=== PATIENT | female | born 1995 | race Caucasian/White ===

== ENCOUNTER → 2017-09-14 | Outpatient (CLI) | payer OTHER | END | disposition home or self-care (01) | LOC: RADECHMAIN 11:49 | PROVIDERS: ATTEND Internal Medicine | DX: R00.2 Palpitations (principal) | CPT/HCPCS: 93225; 93226 ==

== ENCOUNTER 2020-08-31 12:07 | Outpatient (CLI) | payer OTHER ==
[2020-08-31] MEDS ORDERED: LACTATED RINGERS 1,000 ML IV SCH (13:15)
[2020-08-31 13:27] VITALS: RESP 16; TEMP 97.3
[2020-08-31] MEDS ORDERED: LACTATED RINGERS 1,000 ML IV ONE (15:00)
[2020-08-31] MEDS: TERBUTALINE 1 MG/ML VIAL SQ PRN ×2 (15:10→15:43)
[2020-08-31 16:03] LABS: Appearance,Urine Clear (Clear); Bilirubin,Urine Negative (Negative); Blood,Urine Small (Negative); Color,Urine Light Yellow; Glucose,Urine (UA) Negative (Negative); Ketones,Urine Negative (Negative); Leukocyte Esterase,Urine Large (Negative); Mucus,Urine Rare /hpf; Nitrite,Urine Negative (Negative); PH, Urine 6.5 (5.0-8.0); Protein,Urine Negative (Negative); RBC,Urine 1 /hpf (0-5); Specific Gravity,Urine 1.009 (1.001-1.035); Squamous Epithelial Cell,Urine 2 /hpf (0-4); Urobilinogen,Urine <2.0 mg/dL (<2.0); WBC,Urine 5 /hpf (0-5)
[2020-08-31 20:17] VITALS: BP 104/62; PULSE 78
--- NOTE | 2020-09-17 09:43 | P.MSEPDOC ---
Presenting Problems - Arrival Data Date of Arrival on Unit: 08/31/20 Time of Arrival on Unit: 12:27 Mode of Transport: Ambulatory - Complaint OB-Reason for Admission/Chief Complaint: Possible Onset of Labor, Decreased Movement Medical History - Information : 5 Para: 3 Term: 0 : 3 Abortions: Spontaneous or Elective: 1 Number of Living Children: 3 - Gestational Age Gestational Age by ESTEFANIA (wks/days): 29 Weeks and 5 Days - History Complications: Prior Review of Systems - Review of Systems Constitutional: No problems Breast: No problems ENT: No problems Cardiovascular: No problems Respiratory: No problems Gastrointestinal: No problems Genitourinary: No problems Musculoskeletal: No problems Neurological: No problems Skin: No problems Vital Signs - Temperature Temperature: 97.3 F Temperature Source: Tympanic - Pulse Right Sitting Pulse Rate: 78 Pulse Assessment Method: Automatic Cuff - Respirations Respiratory Rate: 16 Oxygen Delivery Method: Room Air O2 Sat by Pulse Oximetry: 98 - Blood Pressure Right Arm Blood Pressure: 104/62 Blood Pressure Mean: 76 Blood Pressure Source: Automatic Cuff Medical Screen Scoring - Assessment - Baby A Baseline FHR: 135 Physician Notification - Physician Notified Physician Notified Date: 08/31/20 Physician Notified Time: 12:51 Physician: Dr Peraza New Order Received: Yes - Notification Comment Comment: 125[address] per Adriel Liz[address] dr. peraza, reported on pts c/o contractions and decreased . movement, reactive nst, 1 conraction in the last 30minuites, pt has button and pushing. irregularly, no vag exam yet, per dr. peraza check cervix while she remains on hold. 1257 Adriel Lizarraga "per dr. peraza start iv and give 500ml bolus LR, recheck cervix in 1 hour, if nochange pt may be d/c home on pelvic rest and instructions to F/U with own provider onmonday, if cervical change call back for further orders. [id number] Dr Peraza updated with pt regular contractions [id number] pm. now breathing thru. and rates pain 6 with contractions. 1 liter LR completed. cervix unchanged at 1427 vag. exam. orders received for terbutaline, give 2nd liter LR and to send UA. Dr will call. back at 4pm for update. Disposition - Disposition OB Disposition: Physician follow up in office, Discharge to home Discharge Date: 08/31/20 Discharge Time: 16:05 I agree with the RN Medical Screening Exam: Yes Case reviewed; plan agreed upon as documented in EMR&OBIX.: Yes Comments: Patient was neither seen nor examined by me. Diagnosis: DECREASED MOVEMENTS, THIRD TRIMESTER, FETUS 1
== END 2020-08-31 16:45 | disposition home or self-care (01) ==
LOC: FBPOP 12:07
PROVIDERS: ATTEND Obstetrics & Gynecology
DX: O36.8131 Decreased fetal movements, third trimester, fetus 1 (principal); Z3A.29 29 weeks gestation of pregnancy; Z91.048 Other nonmedicinal substance allergy status; Z91.018 Allergy to other foods; Z87.891 Personal history of nicotine dependence
CPT/HCPCS: 59025; 96360; 96361; 96372; 81001; G0463; J3105; 96367; 99213; 99214

== ENCOUNTER 2020-10-11 12:53 | Outpatient (CLI) | payer OTHER ==
[2020-10-11 15:00] VITALS: BP 108/67; PULSE 105; RESP 16; TEMP 98.2
--- NOTE | 2020-11-11 08:26 | P.MSEPDOC ---
Presenting Problems - Arrival Data Date of Arrival on Unit: 10/11/20 Time of Arrival on Unit: 12:53 Mode of Transport: Ambulatory - Complaint OB-Reason for Admission/Chief Complaint: Possible Onset of Labor Comment: pt presents to triage with complaints of discomfort for last 2 weeks and increasing discomfort with contractions that she states are irregular, pt also reports bright red spotting that occured 30 minutes prior to coming to triage that is now brown Medical History - Information : 5 Para: 3 Term: 0 : 3 Abortions: Spontaneous or Elective: 1 Number of Living Children: 3 - Gestational Age Gestational Age by ESTEFANIA (wks/days): 35 Weeks and 4 Days - History Complications: Prior Comment: pt has received 2 doses of betamethsone Review of Systems - Review of Systems Constitutional: No problems Breast: No problems ENT: No problems Cardiovascular: No problems Respiratory: No problems Gastrointestinal: No problems Genitourinary: No problems Musculoskeletal: No problems Neurological: No problems Skin: No problems Vital Signs - Temperature Temperature: 98.2 F Temperature Source: Oral - Pulse Right Brachial Pulse Rate: 105 Pulse Assessment Method: Automatic Cuff - Respirations Respiratory Rate: 16 Oxygen Delivery Method: Room Air O2 Sat by Pulse Oximetry: 97 - Blood Pressure Right Arm Blood Pressure: 108/67 Blood Pressure Mean: 80 Blood Pressure Source: Automatic Cuff Medical Screen Scoring - Cervical Exam Dilation (cm): 3.5 Effacement (%): 50 Station: -3 Membranes: Intact - Uterine Contractions Intensity: Moderate Resting: Soft to palpation - Assessment - Baby A Baseline FHR: 135 Heart Rate - NICHD Category: Category I (Normal) NST: Reactive Physician Notification - Physician Notified Physician Notified Date: 10/11/20 Physician Notified Time: 14:15 Physician: Dr Salazar New Order Received: Yes (dc home) Maternal Triage Index - Prompt/Priority 3 Prompt Priority 3: Yes Criteria Met for Priority 3: no cervical change noted Disposition - Disposition OB Disposition: Discharge to home, Written follow up instructions reviewed Discharge Date: 10/11/20 Discharge Time: 14:25 I agree with the RN Medical Screening Exam: Yes Case reviewed; plan agreed upon as documented in EMR&OBIX.: Yes Diagnosis: FALSE LABOR BEFORE 37 COMPLETED WEEKS OF GEST, THIRD TRI
== END 2020-10-11 14:25 | disposition home or self-care (01) ==
LOC: FBPOP 12:53
PROVIDERS: ATTEND Obstetrics & Gynecology
DX: O47.03 False labor before 37 completed weeks of gestation, third trimester (principal); Z3A.35 35 weeks gestation of pregnancy
CPT/HCPCS: 59025; G0463; 99213

== ENCOUNTER 2020-10-11 19:40 | Inpatient (IN) | payer OTHER ==
[2020-10-11] MEDS ORDERED: CARBOPROST TROMETHAMINE 250 MCG/ML 1 ML AMP IM PRN (19:56)
[2020-10-11] MEDS ORDERED: METHYLERGONOVINE 0.2 MG/ML 1 ML AMP IM PRN (19:56)
[2020-10-11] MEDS ORDERED: AMPICILLIN 2,000 MG in SODIUM CHLORIDE 0.9% 100 ML IVPB STA (19:56)
[2020-10-11] MEDS ORDERED: OXYTOCIN 10 UNIT/ML 1 ML VIAL IM PRN (19:56)
[2020-10-11] MEDS ORDERED: TERBUTALINE 1 MG/ML VIAL SQ PRN (19:56)
[2020-10-11] MEDS ORDERED: LIDOCAINE 0.5% (PF) 5 MG/ML (50 ML SDV) SQ PRN (19:56)
[2020-10-11] MEDS: LACTATED RINGERS 1,000 ML IV SCH ×2 (20:10→20:38)
[2020-10-11 20:25] LABS: Basophils # (A) 0.1 k/uL (0-0.2); Basophils % (A) 1 %; Eosinophils # (A) 0.1 k/uL (0-0.7); Eosinophils % (A) 1 %; HCT 32.2 % (34.0-46.0); HGB 10.5 gm/dL (11.4-16.0); Lymphocytes # (A) 2.3 k/uL (1.0-4.8); Lymphocytes % (A) 20 %; MCH 28.8 pg (25.0-35.0); MCHC 32.6 g/dL (31.0-37.0); MCV 88.2 fL (80.0-100.0); Monocytes # (A) 0.5 k/uL (0-1.0); Monocytes % (A) 4 %; Neutrophils # (A) 8.7 k/uL (1.3-7.7); Neutrophils % (A) 73 %; Platelet Count 287 k/uL (150-450); RBC 3.65 m/uL (3.80-5.40); RDW 15.2 % (11.5-15.5); WBC 11.9 k/uL (3.8-10.6)
[2020-10-11] MEDS ORDERED: SODIUM CHLORIDE 0.9% 100 ML BAG ONE (21:01)
[2020-10-11] MEDS ORDERED: fentaNYL (PF) 50 MCG/ML 5 ML AMP ONE (21:01)
[2020-10-11] MEDS ORDERED: ROPIVACAINE 5MG/ML 20ML VIAL ONE (21:01)
--- NOTE | 2020-10-11 21:08 | P.HPOB ---
History of Present Illness H&P Date: 10/11/20 Chief Complaint: Spontaneous rupture of membranes 25-year-old 's presents at 35 weeks and 4 days with spontaneous rupture of membranes. Her cervix is 5 cm dilated, 70% effaced, -2 station. She is liane every 2-5 minutes. heart tones 140 with moderate variability and reactive. Review of Systems All systems: negative Constitutional: Denies chills, Denies fever Eyes: denies blurred vision, denies pain Ears, nose, mouth and throat: Denies headache, Denies sore throat Cardiovascular: Denies chest pain, Denies shortness of breath Respiratory: Denies cough Gastrointestinal: Denies abdominal pain, Denies diarrhea, Denies nausea, Denies vomiting Genitourinary: Denies dysuria, Denies hematuria Musculoskeletal: Denies myalgias Integumentary: Denies pruritus, Denies rash Neurological: Denies numbness, Denies weakness Psychiatric: Denies anxiety, Denies depression Endocrine: Denies fatigue, Denies weight change Past Medical History Past Medical History: No Reported History Additional Past Medical History / Comment(s): Obstetric history: She has had 3 previous vaginal deliveries. O+, abs neg, Rub Imm, RPR Nr, Hep B neg, History of Any Multi-Drug Resistant Organisms: None Reported Past Surgical History: No Surgical Hx Reported Past Anesthesia/Blood Transfusion Reactions: No Reported Reaction Past Psychological History: ADD/ADHD, Depression Smoking Status: Never smoker Past Alcohol Use History: None Reported Past Drug Use History: None Reported - Past Family History Father Family Medical History: No Reported History Medications and Allergies Home Medications Medication Instructions Recorded Confirmed Type Multivitamin [Children's 2 tab PO DAILY 10/12/14 10/11/20 History Multivitamins] Allergies Allergy/AdvReac Type Severity Reaction Status Date / Time adhesive tape Allergy Swelling Uncoded 10/11/20 19:53 [email or web address] Allergy Anaphylaxis Uncoded 10/11/20 19:53 Exam Osteopathic Statement: *. No significant issues noted on an osteopathic structural exam other than those noted in the History and Physical/Consult. Vital Signs Temp Pulse Resp BP 10/11/20 20:17 96.3 F L 108 H 18 124/74 Intake and Output 10/11/20 10/11/20 10/11/20 06:59 14:59 22:59 Other: Weight 59.874 kg Heart: Regular rate and rhythm Lungs: Clear to auscultation bilaterally Abdomen: Soft, nontender Extremities: Negative Homans sign Results Result Diagrams: 10/11/20 20:10 Abnormal Lab Results - Last 24 Hours (Table) 10/11/20 Range/Units 20:10 WBC 11.9 H (3.8-10.6) k/uL RBC 3.65 L (3.80-5.40) m/uL Hgb 10.5 L (11.4-16.0) gm/dL Hct 32.2 L (34.0-46.0) % Neutrophils # 8.7 H (1.3-7.7) k/uL Assessment and Plan (1) Spontaneous rupture of membranes Current Visit: Yes Status: Acute Code(s): GJE3884 - SNOMED Code(s): 727277944 (2) labor Current Visit: Yes Status: Acute Code(s): O60.00 - LABOR WITHOUT DELIVERY, UNSPECIFIED TRIMESTER SNOMED Code(s): 7712113 Plan: 1. Admit to family place 2. GBS prophylaxis 3. Anticipate normal vaginal delivery
[2020-10-11] MEDS ORDERED: OXYTOCIN 30 UNITS/500 ML NS 30 UNIT in SALINE 1 500ML.BAG IV SCH (23:15)
[2020-10-11] MEDS ORDERED: AMPICILLIN 1,000 MG in SODIUM CHLORIDE 0.9% 50 ML IVPB SCH (23:45)
[2020-10-12] MEDS ORDERED: diphenhydrAMINE 50 MG/ML 1 ML VIAL IVP PRN ×2 (00:20)
[2020-10-12] MEDS ORDERED: LANOLIN CREAM 5 GM TUBE TOPICAL PRN (00:20)
[2020-10-12] MEDS ORDERED: SIMETHICONE 80 MG CHEWABLE PO PRN (00:20)
[2020-10-12] MEDS ORDERED: diphenhydrAMINE 25 MG CAP PO PRN (00:20)
[2020-10-12] MEDS ORDERED: HYDROCORTISONE 2.5% RECTAL CREAM 30 GM TUBE RECTAL PRN (00:20)
[2020-10-12] MEDS ORDERED: diphenhydrAMINE 50 MG CAP PO PRN (00:20)
[2020-10-12] MEDS ORDERED: BENZOCAINE/MENTHOL SPRAY 1 GM/SPRAY AEROSOL TOPICAL PRN (00:20)
[2020-10-12] MEDS ORDERED: ZOLPIDEM 5 MG TAB PO PRN (00:20)
[2020-10-12] MEDS ORDERED: ACETAMINOPHEN TAB 325 MG TAB PO PRN (00:20)
--- NOTE | 2020-10-12 00:24 | P.PROBDLV ---
Vaginal Delivery Note - . Vaginal Delivery Note: 25-year-old 's presents at 35 weeks and 4 days with spontaneous rupture of membranes. Her cervix is 5 cm dilated, 70% effaced, -2 station. She is liane every 2-5 minutes. heart tones 140 with moderate variability and reactive. With GBS unknown the ampicillin was started. Patient did get an epidural and was very comfortable, her contractions spaced out to every 10-15 minutes. A few hours after her antibiotics were infiltrated we started Pitocin augmentation. She was completely dilated at midnight, pushed and delivered a viable male infant over intact perineum under epidural anesthesia at 0007. Head delivered OA, anterior shoulder delivered gentle downward guidance for by posterior shoulder and rest of body. Nose and mouth bulb suctioned, cord clamped and cut, infant placed on mother's abdomen. Apgars 8, 9, weight 6 lbs. 2 oz. Placenta delivered spontaneously, intact with three-vessel cord at 0009. Vagina, cervix, perineum inspected. First-degree midline laceration was repaired with 3-0 Vicryl. Estimated blood loss 100 mL. Mother and baby in stable condition.
[2020-10-12] MEDS ORDERED: OXYTOCIN 30 UNITS/500 ML NS 30 UNIT in SALINE 1 500ML.BAG IV SCH (00:30)
[2020-10-12 00:43] VITALS: RESP 16
[2020-10-12] MEDS: IBUPROFEN 600 MG TAB PO PRN ×3 (04:31→21:57)
[2020-10-12] MEDS: SENNOSIDES-DOCUSATE SODIUM 1 EACH TAB PO SCH (08:59)
[2020-10-13] MEDS: SENNOSIDES-DOCUSATE SODIUM 1 EACH TAB PO SCH (02:15)
[2020-10-13] MEDS: IBUPROFEN 600 MG TAB PO PRN ×2 (02:55→09:47)
--- NOTE | 2020-10-13 05:13 | P.DS ---
Providers Date of admission: 10/11/20 19:40 Expected date of discharge: 10/13/20 Attending physician: Carmen Salazar Primary care physician: Stated None - Discharge Diagnosis(es) (1) Spontaneous rupture of membranes Current Visit: Yes Status: Resolved (2) labor Current Visit: Yes Status: Resolved (3) delivery Current Visit: Yes Status: Acute Hospital Course: Patient presented in labor with spontaneous rupture membranes. She underwent a normal vaginal delivery. Her course was uncomplicated. She denies nausea, vomiting, chest pain, shortness of breath or calf pain. Her lochia is decreasing. She'll be discharged home post day #1 in stable condition to follow-up with Dr. Berger in 6 weeks. Plan - Discharge Summary New Discharge Prescriptions: New Ibuprofen [Motrin] 600 mg PO Q6HR PRN #30 tab PRN Reason: Mild Pain Or Fever >= 100.5 No Action Multivitamin [Children's Multivitamins] 2 tab PO DAILY Discharge Medication List Multivitamin [Children's Multivitamins] 2 tab PO DAILY 10/12/14 [History] Ibuprofen [Motrin] 600 mg PO Q6HR PRN #30 tab 10/13/20 [Rx] Follow up Appointment(s)/Referral(s): Ana Berger MD [STAFF PHYSICIAN] - 6 Weeks Discharge Disposition: HOME SELF-CARE
[2020-10-13 07:07] LABS: Basophils % (A) 0 %; Eosinophils # (A) 0.1 k/uL (0-0.7); Eosinophils % (A) 1 %; HCT 29.7 % (34.0-46.0); HGB 10.4 gm/dL (11.4-16.0); Lymphocytes # (A) 2.4 k/uL (1.0-4.8); Lymphocytes % (A) 17 %; MCH 30.5 pg (25.0-35.0); MCV 87.2 fL (80.0-100.0); Monocytes # (A) 0.6 k/uL (0-1.0); Monocytes % (A) 4 %; Neutrophils % (A) 77 %; Platelet Count 216 k/uL (150-450); RDW 14.6 % (11.5-15.5); WBC 14.3 k/uL (3.8-10.6)
[2020-10-13 08:30] VITALS: BP 98/65; PULSE 73; TEMP 98.6
== END 2020-10-13 10:05 | disposition home or self-care (01) | DRG 807 ==
LOC: 4FBP 19:40
PROVIDERS: ADMIT Obstetrics & Gynecology; ATTEND Obstetrics & Gynecology
PROC: 00HU33Z Insertion of Infusion Device into Spinal Canal, Percutaneous Approach (ICD-10-PCS; 2020-10-11)
PROC: 3E0R3BZ Introduction of Anesthetic Agent into Spinal Canal, Percutaneous Approach (ICD-10-PCS; 2020-10-11)
PROC: 10E0XZZ Delivery of Products of Conception, External Approach (ICD-10-PCS; principal; 2020-10-12)
PROC: 0HQ9XZZ Repair Perineum Skin, External Approach (ICD-10-PCS; principal; 2020-10-12)
DX: O60.14X0 Preterm labor third trimester with preterm delivery third trimester, not applicable or unspecified (principal); Z37.0 Single live birth; O70.0 First degree perineal laceration during delivery; Z79.899 Other long term (current) drug therapy; Z3A.35 35 weeks gestation of pregnancy; Z86.59 Personal history of other mental and behavioral disorders; Z91.018 Allergy to other foods; Z91.048 Other nonmedicinal substance allergy status
CPT/HCPCS: 85025; 86850; 86900; 86901; 88307